=== PATIENT | female | born 1935 | race Caucasian/White ===

== ENCOUNTER 2024-09-25 17:58 | Emergency (ER) | payer MEDICARE, MEDICAID ==
[~2024-09-25] VITALS: Ht 157.4 cm; Wt 66.7 kg
[2024-09-25 18:52] LABS: BASO # 0.1 10*3/uL (0.0-0.1); BASO % 0.7 % (0.0-1.0); EOS # 0.8 10*3/uL (0.0-0.4); EOS % 7.5 % (1.0-4.0); HEMATOCRIT 42.8 % (37.0-47.0); MEAN CORPUSCULAR HGB CONC 31.5 g/dl (33.0-37.0); MONO # 0.8 10*3/uL (0.1-1.0); MONO % 7.2 % (3.0-9.0); NEUT # 7.6 10*3/uL (2.3-7.9); NEUT % 70.9 % (47.0-73.0); PLATELET COUNT AUTOMATED 381 10*3/uL (130-400); RED BLOOD COUNT 4.65 10*6/uL (4.10-5.10); RED CELL DISTRI WIDTH 15.8 % (0-14.5); WHITE BLOOD COUNT 10.7 10*3/uL (4.8-10.8)
[2024-09-25 19:12] LABS: BUN 16 mg/dl (9-23); CHLORIDE 107 mmol/L (98-107); POTASSIUM 4.4 mmol/L (3.4-5.1)
[2024-09-25 19:32] LABS: ETHYL ALCOHOL < 3.0 mg/dl (<3)
[2024-09-25 20:57] LABS: BILIRUBIN Negative (Negative); BLOOD Negative (Negative); CLARITY Cloudy (Clear); COLOR Yellow (Yellow); GLUCOSE Negative (Negative); KETONE Trace (Negative); LEUKO ESTERASE 1+ (Negative); NITRITE Negative (Negative); PH 5.5 (4.5-8.0); SPECIFIC GRAVITY >= 1.030 (1.001-1.030)
[2024-09-25 21:18] LABS: BACTERIA 1+; MUCOUS 1+; RBC 0-2 rbc/hpf (0-2); WBC 31-40 wbc/hpf (0-5)
[2024-09-25 21:34] LABS: URINE AMPHETAMINES Negative (1000ng/ml); URINE BARBITURATES Negative (200ng/ml); URINE BENZODIAZEPINES Negative (200ng/ml); URINE CANNABINOIDS (THC) Negative (50ng/ml); URINE COCAINE Negative (300ng/ml); URINE METHADONE Negative (300ng/ml); URINE OPIATES Negative (300ng/ml); URINE PHENCYCLIDINE Negative (25ng/ml)
== END 2024-09-26 00:18 ==
LOC: ED 17:58
PROVIDERS: Internal Medicine; Nurse Practitioner Family
DX: Z04.6 Encounter for general psychiatric examination, requested by authority (principal); Z20.822 Contact with and (suspected) exposure to COVID-19; Z88.1 Allergy status to other antibiotic agents; Z88.0 Allergy status to penicillin

== ENCOUNTER 2024-09-25 19:02 | Inpatient (IN) | payer MEDICARE, MEDICAID ==
[~2024-09-25] VITALS: Ht 152.4 cm; Wt 47.6 kg
[2024-09-25] MEDS ORDERED: ACETAMINOPHEN 325 MG TAB PO PRN (23:05)
[2024-09-25] MEDS ORDERED: MG-AL HYDROXIDE/SIMETICONE 30 ML UDC PO PRN (23:10)
[2024-09-25] MEDS ORDERED: Magnesium Hydroxide 30 ML UDC PO PRN (23:10)
[2024-09-25] MEDS ORDERED: LORazepam 1 MG TAB PO PRN (23:20)
[2024-09-25] MEDS ORDERED: Ziprasidone Mesylate 20 MG VIAL IM PRN (23:20)
[2024-09-25] MEDS ORDERED: hydrOXYzine hydrochloride 50 MG/ML VIAL IM PRN (23:20)
[2024-09-26 00:23] VITALS: BP 122/53
[2024-09-26 06:30] LABS: CHOLESTEROL 151 mg/dL (<200); LDL CHOLESTEROL 85 mg/dL (9-159); TRIGLYCERIDES 117 mg/dl (<150)
[2024-09-26 06:56] LABS: VITAMIN D, 25-HYDROXY 18.3 ng/mL (30-100)
[2024-09-26 08:00] VITALS: BP 143/63
[2024-09-26] MEDS ORDERED: Memantine Hydrochloride 5 MG TAB PO SCH (09:00)
[2024-09-26] MEDS ORDERED: DIVALPROEX SODIUM 125 MG CAP PO SCH (09:00)
[2024-09-26] MEDS ORDERED: Rivastigmine Tartrate 9.5 MG/24 HR PATCH T SCH (09:00)
[2024-09-26 20:00] VITALS: BP 128/55
[2024-09-26] MEDS ORDERED: Memantine Hydrochloride 10 MG TAB PO SCH (21:00)
[2024-09-27 08:00] VITALS: BP 149/66
[2024-09-27 20:00] VITALS: BP 133/60
[2024-09-28 08:00] VITALS: BP 123/79
[2024-09-28] MEDS ORDERED: RIVASTIGMINE 13.3 MG/24 HR TDM T SCH (09:00)
[2024-09-28 20:00] VITALS: BP 120/60
[2024-09-29 08:00] VITALS: BP 126/94
[2024-09-29 20:00] VITALS: BP 116/58
[2024-09-29] MEDS ORDERED: Memantine Hydrochloride 10 MG TAB PO SCH (21:00)
[2024-09-30 08:00] VITALS: BP 158/88
[2024-09-30 20:00] VITALS: BP 154/65
[2024-10-01 08:23] VITALS: BP 132/87
[2024-10-01 20:00] VITALS: BP 154/94
[2024-10-02 06:44] LABS: BASO % 0.2 % (0.0-1.0); EOS % 0.3 % (1.0-4.0); HEMATOCRIT 43.6 % (37.0-47.0); MEAN CELL VOLUME 88.4 fl (81.0-99.0); MEAN CORPUSCULAR HGB 29.2 pg (27.0-31.0); MONO # 0.7 10*3/uL (0.1-1.0); MONO % 6.6 % (3.0-9.0); NEUT # 8.8 10*3/uL (2.3-7.9); NEUT % 80.7 % (47.0-73.0); PLATELET COUNT AUTOMATED 387 10*3/uL (130-400); RED BLOOD COUNT 4.93 10*6/uL (4.10-5.10); RED CELL DISTRI WIDTH 15.2 % (0-14.5); WHITE BLOOD COUNT 10.9 10*3/uL (4.8-10.8)
[2024-10-02 07:27] LABS: ALKALINE PHOSPHATASE 69 U/L (46-116); BUN 8 mg/dl (9-23); CHLORIDE 101 mmol/L (98-107); POTASSIUM 3.9 mmol/L (3.4-5.1); TOTAL PROTEIN 7.1 gm/dL (6.0-8.0)
[2024-10-02 07:43] LABS: SGPT/ALT < 7 U/L (5-49)
[2024-10-02 08:00] VITALS: BP 146/78
[2024-10-02] MEDS ORDERED: LORazepam 1 MG TAB PO PRN (14:55)
[2024-10-02] MEDS ORDERED: hydrOXYzine pamoate 25 MG CAP PO PRN (16:30)
[2024-10-02 20:00] VITALS: BP 140/74
[2024-10-02] MEDS ORDERED: BREXPIPRAZOLE 1 MG TABLET PO SCH (21:00)
[2024-10-03 08:00] VITALS: BP 113/59
[2024-10-03] MEDS ORDERED: ERGOCALCIFEROL 50,000 IU CAP (1.25 MG) PO SCH (10:00)
[2024-10-03 20:00] VITALS: BP 116/39
[2024-10-03] MEDS ORDERED: GUAIFENESIN 600 MG TAB ER PO SCH (21:00)
[2024-10-04 20:00] VITALS: BP 117/64
[2024-10-04] MEDS ORDERED: BREXPIPRAZOLE 2 MG TABLET PO SCH (21:00)
[2024-10-05 08:05] VITALS: BP 81/55
[2024-10-05 08:23] VITALS: BP 95/60
[2024-10-05 20:00] VITALS: BP 107/58
[2024-10-06 08:00] VITALS: BP 117/64
[2024-10-06] MEDS ORDERED: DIVALPROEX (DR) 500 MG TAB PO SCH (09:00)
[2024-10-06 20:00] VITALS: BP 104/35
[2024-10-07 06:26] LABS: BASO # 0.1 10*3/uL (0.0-0.1); BASO % 0.8 % (0.0-1.0); EOS # 0.6 10*3/uL (0.0-0.4); EOS % 8.1 % (1.0-4.0); HEMATOCRIT 43.2 % (37.0-47.0); MEAN CELL VOLUME 90.6 fl (81.0-99.0); MEAN CORPUSCULAR HGB 28.7 pg (27.0-31.0); MEAN CORPUSCULAR HGB CONC 31.7 g/dl (33.0-37.0); MEAN PLATELET VOLUME 10.5 fl (9.6-12.3); MONO # 0.9 10*3/uL (0.1-1.0); MONO % 12.5 % (3.0-9.0); NEUT # 4.3 10*3/uL (2.3-7.9); NEUT % 60.8 % (47.0-73.0); PLATELET COUNT AUTOMATED 261 10*3/uL (130-400); RED BLOOD COUNT 4.77 10*6/uL (4.10-5.10); RED CELL DISTRI WIDTH 15.9 % (0-14.5); WHITE BLOOD COUNT 7.1 10*3/uL (4.8-10.8)
[2024-10-07 06:51] LABS: ALKALINE PHOSPHATASE 64 U/L (46-116); BUN 14 mg/dl (9-23); CHLORIDE 103 mmol/L (98-107); POTASSIUM 4.1 mmol/L (3.4-5.1); SGPT/ALT 12 U/L (5-49); TOTAL PROTEIN 6.6 gm/dL (6.0-8.0)
[2024-10-07 08:00] VITALS: BP 113/71
[2024-10-07] MEDS ORDERED: DIVALPROEX SODIUM 125 MG CAP PO SCH (09:00)
[2024-10-07 14:45] LABS: BILIRUBIN Negative (Negative); BLOOD Negative (Negative); CLARITY Cloudy (Clear); COLOR Dark Yellow (Yellow); GLUCOSE Negative (Negative); KETONE Trace (Negative); LEUKO ESTERASE 2+ (Negative); NITRITE Negative (Negative); PH 5.5 (4.5-8.0); SPECIFIC GRAVITY 1.025 (1.001-1.030)
[2024-10-07 14:51] LABS: BACTERIA 2+; EPITHELIAL CELLS 21-30; MUCOUS 1+; RBC 0-2 rbc/hpf (0-2); WBC 41-50 wbc/hpf (0-5)
[2024-10-07] MEDS ORDERED: Nitrofurantoin Monohydrate/N 100 MG CAP PO SCH (17:00)
[2024-10-07 20:00] VITALS: BP 121/50
[2024-10-07] MEDS ORDERED: CEFDINIR 300 MG CAP PO SCH (21:00)
[2024-10-08 08:18] VITALS: BP 155/80
[2024-10-08] MEDS ORDERED: Polyethylene Glycol 15 ML BOT OPH PRN (12:10)
[2024-10-08 20:00] VITALS: BP 141/74
[2024-10-09 08:41] VITALS: BP 123/84
[2024-10-09 20:00] VITALS: BP 125/61
[2024-10-09] MEDS ORDERED: CITALOPRAM 20 MG TAB PO SCH (21:00)
[2024-10-10 08:00] VITALS: BP 125/61
[2024-10-10 20:00] VITALS: BP 132/78
[2024-10-11 08:00] VITALS: BP 113/62
[2024-10-11 20:00] VITALS: BP 139/81
[2024-10-12 08:00] VITALS: BP 127/67
[2024-10-12 08:04] LABS: BASO # 0.1 10*3/uL (0.0-0.1); BASO % 0.7 % (0.0-1.0); EOS # 0.5 10*3/uL (0.0-0.4); EOS % 7.1 % (1.0-4.0); HEMATOCRIT 41.3 % (37.0-47.0); MEAN CELL VOLUME 91.4 fl (81.0-99.0); MEAN CORPUSCULAR HGB 28.8 pg (27.0-31.0); MEAN CORPUSCULAR HGB CONC 31.5 g/dl (33.0-37.0); MEAN PLATELET VOLUME 10.3 fl (9.6-12.3); MONO # 0.9 10*3/uL (0.1-1.0); MONO % 11.8 % (3.0-9.0); NEUT # 4.7 10*3/uL (2.3-7.9); NEUT % 60.9 % (47.0-73.0); PLATELET COUNT AUTOMATED 254 10*3/uL (130-400); RED BLOOD COUNT 4.52 10*6/uL (4.10-5.10); RED CELL DISTRI WIDTH 15.9 % (0-14.5); WHITE BLOOD COUNT 7.7 10*3/uL (4.8-10.8)
[2024-10-12 08:25] LABS: POTASSIUM 4.1 mmol/L (3.4-5.1); TOTAL PROTEIN 6.1 gm/dL (6.0-8.0); VALPROIC ACID (DEPAKENE) 75.4 ug/ml (50-100)
[2024-10-12 20:00] VITALS: BP 138/66
[2024-10-12] MEDS ORDERED: hydrOXYzine pamoate 25 MG CAP PO SCH (21:00)
[2024-10-12] MEDS ORDERED: GUAIFENESIN 10 ML UDC PO PRN (21:00)
[2024-10-13] MEDS ORDERED: SODIUM CHLORIDE NEB SCH (06:00)
[2024-10-13 08:00] VITALS: BP 122/99
[2024-10-13 20:00] VITALS: BP 156/93
[2024-10-14 08:00] VITALS: BP 116/66
[2024-10-14 20:00] VITALS: BP 131/79
[2024-10-15 08:12] VITALS: BP 113/86
[2024-10-15 20:00] VITALS: BP 109/69
[2024-10-16 08:15] VITALS: BP 124/69
[2024-10-16] MEDS ORDERED: HYDROXYZINE PAM25 M1 PO (09:30)
[2024-10-16] MEDS ORDERED: Vitamin D (50,000 UN PO (09:30)
[2024-10-16] MEDS ORDERED: RIVASTIGMINE1 EAC2 T (09:30)
[2024-10-16] MEDS ORDERED: REXULTI2 MG PO (09:30)
[2024-10-16] MEDS ORDERED: CITALOPRAM20 MG PO (09:30)
[2024-10-16] MEDS ORDERED: MEMANTINE HCL10 MG PO (09:30)
[2024-10-16] MEDS ORDERED: DIVALPROEX SOD125 M1 PO (09:30)
[2024-10-16] MEDS ORDERED: ASPIRIN ADULT L81 M1 PO (11:12)
[2024-10-16] MEDS ORDERED: CLARITIN10 MG PO (11:12)
[2024-10-16] MEDS ORDERED: LIPITOR10 MG PO (11:13)
[2024-10-16] MEDS ORDERED: LOPRESSOR50 M1 PO (11:13)
[2024-10-16] MEDS ORDERED: ZETIA10 MG PO (11:37)
[2024-10-16] MEDS ORDERED: TYLENOL325 M2 PO (11:38)
[2024-10-16] MEDS ORDERED: DULCOLAX10 M1 R (11:39)
[2024-10-16] MEDS ORDERED: MILK OF MA400 MG/53 PO (11:40)
[2024-10-16] MEDS ORDERED: DULCOLAX STOOL100 MG PO (11:40)
[2024-10-16] MEDS ORDERED: Ipratropium Brom3 ML INH (11:41)
== END 2024-10-16 14:14 | DRG 883 ==
LOC: 3N 19:02
PROVIDERS: Counselor Professional; Nurse Practitioner; ADMIT Psychiatry & Neurology Psychiatry; ATTEND Psychiatry & Neurology Psychiatry
PROC: GZHZZZZ Group Psychotherapy (ICD-10-PCS; principal; 2024-09-26)
PROC: GZ56ZZZ Individual Psychotherapy, Supportive (ICD-10-PCS; 2024-09-26)
DX: F63.81 Intermittent explosive disorder (principal); N17.0 Acute kidney failure with tubular necrosis; J69.0 Pneumonitis due to inhalation of food and vomit; F02.811 Dementia in other diseases classified elsewhere, unspecified severity, with agitation; F33.9 Major depressive disorder, recurrent, unspecified; N39.0 Urinary tract infection, site not specified; F02.83 Dementia in other diseases classified elsewhere, unspecified severity, with mood disturbance; G30.9 Alzheimer's disease, unspecified; J44.9 Chronic obstructive pulmonary disease, unspecified; I10 Essential (primary) hypertension; R82.71 Bacteriuria; R73.9 Hyperglycemia, unspecified; E78.2 Mixed hyperlipidemia; E55.9 Vitamin D deficiency, unspecified; Z88.1 Allergy status to other antibiotic agents; Z88.0 Allergy status to penicillin; Z87.891 Personal history of nicotine dependence; Z82.49 Family history of ischemic heart disease and other diseases of the circulatory system